=== PATIENT | male | born 1980 | race Hispanic/Latino ===

== ENCOUNTER 2019-12-16 20:31 | Emergency (ER) | payer BC, SELFPAY ==
[2019-12-16 21:21] LABS: Absolute Lymphocytes (CBC) 1.4 K/uL (0.7-4.9); Basophils % 0.4 % (0-1.3); Hematocrit 45.1 % (39.6-49.0); Lymphocytes % 11.3 % (15.3-44.8); MPV 8.6 fL (7.6-11.3); RBC Red Blood Cell Count 5.21 M/uL (4.33-5.43)
[2019-12-16] MEDS ORDERED: MORPHINE 4 MG/ML SYR ONE (21:28)
[2019-12-16] MEDS ORDERED: ONDANSETRON 4 MG/2 ML VIAL ONE (21:28)
[2019-12-16 21:35] LABS: BUN Blood Urea Nitrogen 13 mg/dL (7-18); Bicarbonate 27 mmol/L (21-32); Glucose Level 193 mg/dL (74-106); Potassium 3.7 mmol/L (3.5-5.1); Sodium Level 139 mmol/L (136-145)
--- NOTE | 2019-12-16 22:21 | RAD REPORT ---
EXAM DESCRIPTION: RAD - Ankle Left 3 View -12/16/2019 10:15 pm CLINICAL HISTORY: Left ankle pain status post injury FINDINGS: No fracture or dislocation is seen.
--- NOTE | 2019-12-16 22:22 | RAD REPORT ---
EXAM DESCRIPTION: RAD - Ankle Right 3 View - 12/16/2019 10:15 pm CLINICAL HISTORY: Right ankle pain FINDINGS: No fracture or dislocation is seen. Soft tissue swelling
--- NOTE | 2019-12-16 22:23 | RAD REPORT ---
EXAM DESCRIPTION: RAD - Knee Left 3 View - 12/16/2019 10:15 pm CLINICAL HISTORY: Left knee pain status post injury FINDINGS: No fracture or dislocation is seen.
--- NOTE | 2019-12-16 22:26 | RAD REPORT ---
EXAM DESCRIPTION: RAD -Hand Left 3 View - 12/16/2019 10:17 pm CLINICAL HISTORY: Left hand pain status post injury FINDINGS: A moderately displaced vertical fracture involves the distal radius extending to the artic ular surface. Avulsion fracture ulnar styloid process No dislocation
--- NOTE | 2019-12-16 22:27 | RAD REPORT ---
EXAM DESCRIPTION: RAD - Shoulder Right 2 View - 12/16/2019 10:15 pm CLINICAL HISTORY: Right shoulder pain FINDINGS: No fracture or dislocation is seen.
[2019-12-17] MEDS ORDERED: HYDROCODONE/APAP 5/325 MG TAB ONE (00:10)
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
[2019-12-17 01:33] VITALS: TEMP 98.4
[2019-12-17 01:36] VITALS: BP 140/48; O2SAT 98
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
== END 2019-12-17 01:08 | disposition home or self-care (01) ==
LOC: ER 20:31
PROC: 2W3DX1Z Immobilization of Left Lower Arm using Splint (ICD-10-PCS; principal; 2019-12-16)
DX: S52.572A Other intraarticular fracture of lower end of left radius, initial encounter for closed fracture (principal); S80.12XA Contusion of left lower leg, initial encounter; S80.11XA Contusion of right lower leg, initial encounter; V28.0XXA Motorcycle driver injured in noncollision transport accident in nontraffic accident, initial encounter; F17.210 Nicotine dependence, cigarettes, uncomplicated
CPT/HCPCS: 85025; 80048; 36415; 86900; 86850; 82565; 86901; 70450; 72125; 71260; 70486; 76377; 74177; 73130; 73030; 73562; 73610 ×2; 29125; Q9967; J2405